=== PATIENT | female | born 1980 | race Caucasian/White ===

== ENCOUNTER 2023-10-24 08:49 | Emergency (ER) | payer BC ==
[2023-10-24] MEDS: Lidocaine 2% Viscous Solution 15 ML UD PO ONE (09:16)
[2023-10-24] MEDS: Benzocaine 20% Topical Spray UD MUCMEM ONE (09:16)
== END 2023-10-24 09:20 | disposition home or self-care (01) ==
LOC: MW.ED 08:49
DX: K08.89 Other specified disorders of teeth and supporting structures (principal); Z75.8 Other problems related to medical facilities and other health care; Z88.8 Allergy status to other drugs, medicaments and biological substances
CPT/HCPCS: 99283; A9270

== ENCOUNTER 2023-12-17 07:52 | Emergency (ER) | payer BC ==
[2023-12-17] MEDS: Penicillin V Potassium 500 MG Tab PO STA (09:04)
== END 2023-12-17 09:16 | disposition home or self-care (01) ==
LOC: MW.ED 07:52
DX: K08.89 Other specified disorders of teeth and supporting structures (principal); Z75.8 Other problems related to medical facilities and other health care; Z88.5 Allergy status to narcotic agent; Z79.899 Other long term (current) drug therapy
CPT/HCPCS: 99282; A9270; 99283